=== PATIENT | female | born 1995 | race African-American/Black ===

== ENCOUNTER 2021-12-14 16:00 | Emergency (ER) | payer MEDICARE, MEDICAID ==
[~2021-12-14] VITALS: Ht 175.3 cm; Wt 72.0 kg
[2021-12-14 16:13] VITALS: BP 115/72
[2021-12-14] MEDS ORDERED: NAPR-1176 MT (16:58)
== END 2021-12-14 18:34 | disposition home or self-care (01) ==
LOC: ER 16:00
DX: M54.59 Other low back pain (principal)
CPT/HCPCS: 99282

== ENCOUNTER 2022-03-30 12:16 | Emergency (ER) | payer MEDICAID, MEDICARE, OTHER ==
[~2022-03-30] VITALS: Ht 167.6 cm; Wt 77.0 kg
[~2022-03-30 12:16] MED LIST: NAPR-1176 MT
[2022-03-30] MEDS ORDERED: ACETAMINOPHEN 325MG TABLET PO ONE (12:45)
[2022-03-30] MEDS ORDERED: KETOROLAC 60MG/2ML VIAL IM ONE (12:45)
[2022-03-30] MEDS ORDERED: MORPHINE SULFATE 10 MG/ML CPJ IM ONE (12:45)
[2022-03-30] MEDS ORDERED: BACITRACIN/POLYMYXIN B SULFATE OINT 15GM TOP ONE (12:45)
[2022-03-30] MEDS ORDERED: BACITRACIN/POLYMYXIN B SULFATE OINT 15GM TOP SCH (13:00)
[2022-03-30] MEDS ORDERED: HYDR-4001 MT (14:45)
[2022-03-30] MEDS ORDERED: BO1 TP (14:45)
[2022-03-30] MEDS ORDERED: [UNRECOGNIZED DRUG - CODE] TP (14:45)
[2022-03-30] MEDS ORDERED: BISM1BAN TP (14:45)
[2022-03-30] MEDS ORDERED: IBUP-2028 MT (14:45)
[2022-03-30 15:30] VITALS: BP 111/67
== END 2022-03-30 15:35 | disposition home or self-care (01) ==
LOC: ER 12:16
DX: S80.811A Abrasion, right lower leg, initial encounter (principal); X58.XXXA Exposure to other specified factors, initial encounter; Y93.89 Activity, other specified; Y92.89 Other specified places as the place of occurrence of the external cause; Y99.8 Other external cause status
CPT/HCPCS: 73562; 73590; 73610; 73630; 81025; 96372; 99284; J1885; J2270